=== PATIENT | female | born 1970 | race American Indian/Alaskan Native ===

== ENCOUNTER 2020-07-02 17:35 | Emergency (ER) | payer SELFPAY ==
--- NOTE | 2020-07-02 18:46 | Event Note ---
ED Screening Note Date of service: 07/02/20 Time: 18:44 ED Screening Note: Patient is a 50-year-old female with history of hypertension who presents with substernal chest pain 5/10 for 2 days. Patient denies dizziness, lightheadedness, nausea vomiting, diaphoresis. Symptoms are exacerbated by activity and movement. Symptoms are relieved by nothing. Patient denies cardiac history. There has been no fever or chills. Patient denies cough. This initial assessment/diagnostic orders/clinical plan/treatment(s) is/are subject to change based on patients health status, clinical progression and re- assessment by fellow clinical providers in the ED. Further treatment and workup at subsequent clinical providers discretion. Patient/guardian urged not to elope from the ED as their condition may be serious if not clinically assessed and managed. Initial orders include: Trop, CXR, EKG, CBC, CMP
--- NOTE | 2020-07-02 19:36 | XRay Report ---
CHEST 2 VIEWS INDICATION / CLINICAL INFORMATION: Chest pain/tightness, body aches, chills, headache. COMPARISON: None available. FINDINGS: SUPPORT DEVICES: None. HEART / MEDIASTINUM: No significant abnormality. LUNGS / PLEURA: Clear lungs. No significant pleural effusion. No pneumothorax. ADDITIONAL FINDINGS: No significant additional findings. IMPRESSION: 1. No acute abnormality of the chest. Signer Name: Frederic Mott MD Signed: 07/02/2020 7:32 PM Workstation Name: [id number]
[2020-07-02 20:06] LABS: Hematocrit 45.1 % (30.3-42.9); Hemoglobin 15.1 gm/dl (10.1-14.3); Mean Corpuscular HGB Conc 33 % (30-34); Mean Corpuscular Volume 85 fl (79-97); Platelet Count 250 K/mm3 (140-440); Red Blood Count 5.32 M/mm3 (3.65-5.03); Red Cell Distribution Width 13.6 % (13.2-15.2)
[2020-07-02 20:34] LABS: Alanine Aminotransferase 13 units/L (7-56); Albumin 4.4 g/dL (3.9-5); BUN/Creatinine Ratio 15; Blood Urea Nitrogen 12 mg/dL (7-17); Calcium 9.3 mg/dL (8.4-10.2); Hemolysis Index 8
[2020-07-03 00:13] LABS: Ovalocytes Rare; Platelet Estimate Consistent w Auto; Total Cells Counted 100
--- NOTE | 2020-07-03 00:50 | Emergency Department Report ---
ED Chest Pain HPI - General Chief Complaint: Upper Respiratory Infection Stated Complaint: CHEST PAIN; NAUSEA; HEADACHE Time Seen by Provider: 07/03/20 00:27 Source: patient Mode of arrival: Ambulatory Limitations: No Limitations - History of Present Illness Initial Comments: Chief complaint chest pain headache HPI: This is a 50-year-old female without significant past medical history with exception of self diagnosis of "reflux" who presents with chest pain headache. For the last day she has had intermittent chest pain. Her chest pain feels like gas. Chest pain is exacerbated when she does not eat. Pain is 4 out of 10. She also has a history of muscle spasm in her chest. Central tightness not associated with exertion. Patient has been quite active in her home. She has been painting her home. She also has been laying down towel. Chest pain is not associated with exertion or activity. Chest pain is not associated with movement. Pain is fleeting. Pain lasts a few seconds or minutes. Patient does not have a PCP. She does plan to follow-up with Dr. Strauss who is a family friend. Dr. Strauss is also her 's doctor. She has not had a physical exam in several years. She denies history of heart disease, hypertension, diabetes. Patient states that she had mild headache. She just felt unwell. Headache resolved. Patient states that she has not been eating on a regular basis due to large amount of work to be done at her home. She states that time just gets away from her. No family history of heart attack. Mother has history of stroke. Mother did have heart murmur. MD Complaint: chest pain -: Gradual, days(s) Onset: during rest, during exertion Pain Location: substernal, left chest Severity: mild Severity scale (0 -10): 4 Quality: tightness, aching, dull Consistency: intermittent Improves With: eating Worsens With: nothing Other Symptoms: other (headache) Treatments Prior to Arrival: none Aspirin use within the Past 7 Days: (0) No - Related Data Allergies Allergy/AdvReac Type Severity Reaction Status Date / Time No Known Allergies Allergy Unverified 07/02/20 17:47 Heart Score - HEART Score History: Slightly suspicious EKG: Normal Age: 45-65 Risk factors: No known risk factors Troponin: < normal limit HEART Score: 1 ED Review of Systems ROS: Stated complaint: CHEST PAIN; NAUSEA; HEADACHE Other details as noted in HPI Comment: All other systems reviewed and negative Constitutional: denies: fever, malaise Respiratory: denies: cough, shortness of breath Cardiovascular: chest pain Neurological: headache ED Past Medical Hx - Past Medical History Previous Medical History?: No - Surgical History Past Surgical History?: Yes Additional Surgical History: Lumpectomy left breast - Family History Family history: vascular disease - Social History Smoking Status: Never Smoker Substance Use Type: None ED Physical Exam - General Limitations: No Limitations General appearance: alert, in no apparent distress, other (Patient appears well, she appears comfortable) - Head Head exam: Present: atraumatic, normocephalic - Eye Eye exam: Present: normal appearance - ENT ENT exam: Present: mucous membranes moist - Neck Neck exam: Present: normal inspection, full ROM - Respiratory Respiratory exam: Present: normal lung sounds bilaterally. Absent: respiratory distress, wheezes, rales, rhonchi - Cardiovascular Cardiovascular Exam: Present: regular rate, normal rhythm, normal heart sounds. Absent: systolic murmur, diastolic murmur, rubs, gallop - GI/Abdominal GI/Abdominal exam: Present: soft, normal bowel sounds. Absent: distended, tenderness, guarding, rebound - Extremities Exam Extremities exam: Present: normal inspection - Neurological Exam Neurological exam: Present: alert, oriented X3 - Psychiatric Psychiatric exam: Present: normal affect, normal mood - Skin Skin exam: Present: warm, dry, intact, normal color. Absent: rash ED Course Vital Signs 07/02/20 17:44 Temperature 98.2 F Pulse Rate 94 H Respiratory 18 Rate Blood Pressure 186/95 [Right] O2 Sat by Pulse 98 Oximetry ED Medical Decision Making - Lab Data Result diagrams: 07/02/20 19:34 07/02/20 19:34 Laboratory Results - last 24 hr 07/02/20 07/02/20 07/02/20 19:34 19:34 23:25 WBC 4.2 L RBC 5.32 H Hgb 15.1 H Hct 45.1 H MCV 85 MCH 28 MCHC 33 RDW 13.6 Plt Count 250 Add Manual Diff Complete Total Counted 100 Seg Neutrophils % [employer] Livestock Seg Neuts % (Manual) 38.0 L Lymphocytes % (Manual) 51.0 H Monocytes % (Manual) 9.0 H Eosinophils % (Manual) 1.0 Basophils % (Manual) 1.0 Nucleated RBC % Not Reportable Seg Neutrophils # Man 1.6 L Band Neutrophils # 0.0 Lymphocytes # (Manual) 2.1 Abs React Lymphs (Man) 0.0 Monocytes # (Manual) 0.4 Eosinophils # (Manual) 0.0 Basophils # (Manual) 0.0 Metamyelocytes # 0.0 Myelocytes # 0.0 Promyelocytes # 0.0 Blast Cells # 0.0 WBC Morphology Not Reportable Hypersegmented Neuts Not Reportable Hyposegmented Neuts Not Reportable Hypogranular Neuts Not Reportable Smudge Cells Not Reportable Toxic Granulation Not Reportable Toxic Vacuolation Not Reportable Dohle Bodies Not Reportable Pelger-Huet Anomaly Not Reportable Shlomo Rods Not Reportable Platelet Estimate Consistent w auto Clumped Platelets Not Reportable Plt Clumps, EDTA Not Reportable Large Platelets Not Reportable Giant Platelets Not Reportable Platelet Satelliting Not Reportable Plt Morphology Comment Not Reportable RBC Morphology Not Reportable Dimorphic RBCs Not Reportable Polychromasia Not Reportable Hypochromasia Not Reportable Poikilocytosis Not Reportable Anisocytosis Not Reportable Microcytosis Not Reportable Macrocytosis Not Reportable Spherocytes Not Reportable Pappenheimer Bodies Not Reportable Sickle Cells Not Reportable Target Cells Not Reportable Tear Drop Cells Not Reportable Ovalocytes Rare Helmet Cells Not Reportable Merrill-[place] Bodies Not Reportable [place] Rings Not Reportable Sherri Cells Not Reportable Bite Cells Not Reportable Crenated Cell Not Reportable Elliptocytes Not Reportable Acanthocytes (Spur) Not Reportable Rouleaux Not Reportable Hemoglobin C Crystals Not Reportable Schistocytes Not Reportable Malaria parasites Not Reportable Ant Bodies Not Reportable Hem Pathologist Commnt No Sodium 136 L Potassium 4.7 Chloride 100.6 Carbon Dioxide 24 Anion Gap 16 BUN 12 Creatinine 0.8 Estimated GFR > 60 BUN/Creatinine Ratio 15 Glucose 178 H Calcium 9.3 Total Bilirubin 0.20 AST 12 ALT 13 Alkaline Phosphatase 91 Troponin T < 0.010 < 0.010 Total Protein 7.5 Albumin 4.4 Albumin/Globulin Ratio 1.4 - EKG Data -: EKG Interpreted by Hi EKG shows normal: sinus rhythm, axis, intervals, QRS complexes, ST-T waves Rate: normal - EKG Data Interpretation: normal EKG 01/20/21 00:58 EKG obtained 54 EKG interpreted by me Rate 65 bpm normal sinus rhythm normal rate normal axis normal intervals no ST elevation no ST-T signs of ischemia normal EKG - Radiology Data Radiology results: report reviewed Chest radiograph: No acute findings according to radiology impression CT head: No acute findings according to radiology impression - Medical Decision Making 1. Chest pain: Heart score 1. Troponin 2 negative values. No indication of emergent conditions such as PE dissection pneumothorax. I have faxed to cardiology outpatient appointment request to the [facility] for cardiac evaluation. Differential diagnosis includes GERD, chest wall pain. 2. Headache: No red flags to indicate emergent cause such as fever vomiting neurological changes or sudden onset. CT head without acute findings 3. Hypertensive urgency: No history of hypertension. I strongly encourage patient to follow-up with Dr. Strauss to follow and manage blood pressure in outpatient setting. No evidence of endorgan damage. Blood pressure treatment is not indicated at this juncture. Critical care attestation.: If time is entered above; I have spent that time in minutes in the direct care of this critically ill patient, excluding procedure time. ED Disposition Clinical Impression: Hypertensive urgency, Chest pain, Tension headache Disposition: DC-01 TO HOME OR SELFCARE Is pt being admited?: No Does the pt Need Aspirin: No Condition: Stable Instructions: Chest Pain (ED), Nonspecific Chest Pain, Adult, General Headache Without Cause, Preventing Hypertension Additional Instructions: Your blood pressure today is 186/95. Please have your new primary care physician recheck this blood pressure reading in 2 weeks. Referrals: DEEPIKA STRAUSS MD [Staff Physician] - 3-5 Days JONEL PALMER MD [Staff Physician] - 3-5 Days
[2020-07-03 01:03] VITALS: BP 166/67
== END 2020-07-03 01:09 | disposition home or self-care (01) ==
LOC: ED 17:35
DX: R03.0 Elevated blood-pressure reading, without diagnosis of hypertension (principal); R07.89 Other chest pain; G44.209 Tension-type headache, unspecified, not intractable
CPT/HCPCS: 36415; 71046; 80053; 84484; 85007; 85025; 93005; 99283